=== PATIENT | male | born 1960 | race Caucasian/White ===

== ENCOUNTER 2024-06-17 12:22 | Inpatient (IN) | payer OTHER, MEDICARE ==
[~2024-06-17] VITALS: Ht 182.9 cm; Wt 109.1 kg
[2024-06-17 13:24] LABS: BASOPHILS % (AUTO) 0.2 % (0-1); EOSINOPHILS % (AUTO) 0.1 % (0-6); HEMATOCRIT 44.5 % (42.0-52.0); HEMOGLOBIN 15.4 g/dl (14.0-17.9); LYMPHOCYTES # (AUTO) 1.3 X10'3 (1.1-4.8); LYMPHOCYTES % (AUTO) 18.6 % (21-51); MEAN CORPUSCULAR HEMOGLOBIN 28.4 PG (27.0-31.0); MEAN CORPUSCULAR HGB CONC 34.6 g/dL (33.0-36.5); MEAN CORPUSCULAR VOLUME 82.1 FL (78-98); MEAN PLATELET VOLUME 10.2 FL (7.4-10.4); MONOCYTES # (AUTO) 0.6 X10'3 (0-0.9); NEUTROPHILS # (AUTO) 5.1 X10'3 (1.8-7.7); NEUTROPHILS % (AUTO) 73.1 % (42-75); PLATELET COUNT 166 X10'3 (140-440); RED BLOOD COUNT 5.42 X10'6 (4.70-6.10); RED CELL DISTRIBUTION WIDTH 13.2 % (11.5-14.5)
[2024-06-17 13:40] LABS: ALANINE AMINOTRANSFERASE 17 U/L (12-78); ALBUMIN 4.3 G/DL (3.4-5.0); ALBUMIN/GLOBULIN RATIO 1.3 (1.1-1.5); ALKALINE PHOSPHATASE 47 IU/L (46-116); AMYLASE 24 U/L (25-115); ANION GAP 11 (8-16); ASPARTATE AMINO TRANSFERASE 13 U/L (10-37); BILIRUBIN,TOTAL 1.5 MG/DL (0.1-1.0); BLOOD UREA NITROGEN 34 MG/DL (7-18); BUN/CREATININE RATIO 25.4 (10.0-20.0); CALCIUM 9.8 MG/DL (8.5-10.1); CHLORIDE 94 MMOL/L (99-107); CREATININE 1.34 MG/DL (0.60-1.10); LIPASE 14 U/L (16-77); POTASSIUM 4.7 MMOL/L (3.5-5.1); SODIUM 134 MMOL/L (135-145); TOTAL CARBON DIOXIDE 28.7 MMOL/L (24-32); TOTAL PROTEIN 7.7 G/DL (6.4-8.2); eCRCL 57 ML/MIN; eGFR 53 ML/MIN
[2024-06-17 13:50] LABS: GLUCOSE 408 MG/DL (70-104)
[2024-06-17] MEDS ORDERED: iohexol 300mg/ml 100ml inj. ONE (13:54)
[2024-06-17 14:38] LABS: BILIRUBIN,URINE SMALL (Neg); CLARITY,URINE CLEAR (Clear); COLOR,URINE YELLOW (Yellow); GLUCOSE, URINE >=1000 mg/dl (Neg); KETONES,URINE 40 mg/dl (Neg); LEUKOCYTE ESTERASE ,URINE NEGATIVE (Neg); NITRITES, URINE NEGATIVE (Neg); OCCULT BLOOD,URINE NEGATIVE (Neg); PROTEIN,URINE 30 mg/dl (Neg); UROBILINOGEN,URINE 0.2 E.U/dL (0.2-1.0)
[2024-06-17 14:41] LABS: UA COLLECTION TYPE URINAL
[2024-06-17 14:45] LABS: FINE GRANULAR CAST 0-3 /LPF (NEGATIVE); HYALINE CASTS 0-3 /LPF (NEGATIVE)
[2024-06-17 14:46] LABS: BACTERIA,URINE FEW /HPF (Neg); MUCUS STRANDS FEW /LPF (Neg); RBC,URINE 0-2 /HPF (0-2); SQUAMOUS EPITHELIAL CELL,UR FEW /LPF (FEW); WBC,URINE 0-4 /HPF (0-4)
[2024-06-17] MEDS: normal saline 1000ML IV soln IVB ONE (15:10)
[2024-06-17] MEDS: proCHLORperazine 10 MG/2 ml inj IV ONE (15:11)
[2024-06-17] MEDS: pantoprazole 40 MG vial IV ONE (15:11)
[2024-06-17 15:22] LABS: ACETONE SMALL (NEGATIVE)
[2024-06-17] MEDS: insulin regular, human 10 units/0.1 ml syringe SQ ONE (16:10)
[2024-06-17] MEDS ORDERED: magnesium hydroxide 30ml (MOM) UD suspension PO PRN (17:05)
[2024-06-17] MEDS ORDERED: acetaminophen 325mg tablet PO PRN (17:05)
[2024-06-17] MEDS ORDERED: potassium Cl 20 mEq SR tablet PO PRN ×2 (17:05)
[2024-06-17] MEDS ORDERED: magnesium Cl slow-release 64mg tablet PO PRN (17:05)
[2024-06-17] MEDS ORDERED: mag hydrox/Alum hydrox/simeth 30ml oral suspension PO PRN (17:05)
[2024-06-17] MEDS ORDERED: morphine 2 MG/ML inj. syringe IV PRN (17:05)
[2024-06-17] MEDS ORDERED: magnesium sulf-water 4G/100mL 100 ML IV PRN (17:05)
[2024-06-17] MEDS ORDERED: HYDROmorphone inj. 0.5 MG/0.5 ML DISP.SYRIN IV PRN (17:05)
[2024-06-17] MEDS ORDERED: ondansetron/PF 4mg/2ml inj IV PRN (17:05)
[2024-06-17] MEDS ORDERED: potassium Cl 40MEQ/1/2NS 520ml 520 ML IV PRN (17:05)
[2024-06-17] MEDS ORDERED: magnesium sulf-water 2g/50mL 50 ML IV PRN (17:05)
[2024-06-17] MEDS ORDERED: dextrose 50%-water 50ml dispensing syringe IV PRN ×2 (17:10)
[2024-06-17] MEDS ORDERED: glucagon, human recombinant 1mg kit SUBCUT PRN (17:10)
[2024-06-17] MEDS ORDERED: DEXTROSE 15 GM of carb/4 tabs (each vial/BOTTLE has 4 tablets) PO PRN ×2 (17:10)
[2024-06-17 17:47] LABS: OSMOLALITY UA 1022 MOSM/K (50-1400)
[2024-06-17 17:48] LABS: HEMOGLOBIN A1C 7.9 % (4.5-6.2)
[2024-06-17 17:59] LABS: OSMOLALITY 307 MOSM/K (280-300)
[2024-06-17 18:00] LABS: CREATININE 1.16 MG/DL (0.60-1.10); SODIUM 132 MMOL/L (135-145); eCRCL 66 ML/MIN; eGFR 63 ML/MIN
[2024-06-17 18:02] LABS: CREATININE,URINE RANDOM 136.1 MG/DL; SODIUM,URINE RANDOM 30 MEQ/L; URINE AMPHETAMINE SCREEN NEGATIVE (Neg); URINE BARBITUATE SCREEN NEGATIVE (Neg); URINE BENZODIAZEPINES SCREEN NEGATIVE (Neg); URINE COCAINE SCREEN NEGATIVE (Neg); URINE METHADONE SCREEN NEGATIVE (Neg); URINE OPIATE SCREEN NEGATIVE (Neg); URINE PHENCYCLIDINE SCREEN NEGATIVE (Neg)
[2024-06-17 18:03] LABS: URINE CANNABINOID SCREEN NEGATIVE (Neg)
[2024-06-17] MEDS: normal saline 1000ml 1,000 ML IV SCH (19:00)
[2024-06-17] MEDS: INSULIN LISPRO 100 UNIT/ML INSULN.PEN MULTI-DOSE SQ SCH ×2 (19:48→21:12)
[2024-06-17] MEDS: hydrALAZINE 20mg/ml inj. IV SCH (19:51)
[2024-06-17] MEDS: docusate sod 100mg capsule PO SCH (19:51)
[2024-06-17] MEDS: K and/or MAG REPLACEMENT MC SCH (19:52)
[2024-06-17] MEDS: insulin glargine (Lantus) pen - multi-dose SQ SCH (21:13)
[2024-06-17] MEDS ORDERED: GABA-1405 PO (21:32)
[2024-06-17] MEDS ORDERED: ROSU40TA89 PO (21:32)
[2024-06-17] MEDS ORDERED: LISI10TA27 PO (21:32)
[2024-06-17] MEDS ORDERED: INSU200I8 (21:32)
[2024-06-17] MEDS ORDERED: BUPR8TAB4 SL (21:32)
[2024-06-17] MEDS ORDERED: LACT10PA5 PO (21:32)
[2024-06-18] VITALS (8 sets, daily range): BP systolic 131–172; BP diastolic 61–85; PULSE 81–94; RESP 14–18; TEMP 97.9–98.8; O2SAT 97–99
[2024-06-18] MEDS ORDERED: HYDROmorphone 1 mg/ml syringe IV PRN (00:50)
[2024-06-18 05:57] LABS: BASOPHILS # (AUTO) 0.1 X10'3 (0-0.2); BASOPHILS % (AUTO) 1.2 % (0-1); EOSINOPHILS # (AUTO) 0.1 X10'3 (0-0.9); EOSINOPHILS % (AUTO) 1.1 % (0-6); HEMATOCRIT 38.9 % (42.0-52.0); HEMOGLOBIN 13.6 g/dl (14.0-17.9); LYMPHOCYTES # (AUTO) 2.2 X10'3 (1.1-4.8); LYMPHOCYTES % (AUTO) 31.6 % (21-51); MEAN CORPUSCULAR HEMOGLOBIN 28.8 PG (27.0-31.0); MEAN CORPUSCULAR VOLUME 82.1 FL (78-98); MEAN PLATELET VOLUME 10.5 FL (7.4-10.4); MONOCYTES # (AUTO) 0.8 X10'3 (0-0.9); MONOCYTES % (AUTO) 11.4 % (2-12); NEUTROPHILS # (AUTO) 3.8 X10'3 (1.8-7.7); NEUTROPHILS % (AUTO) 54.7 % (42-75); PLATELET COUNT 135 X10'3 (140-440); RED BLOOD COUNT 4.74 X10'6 (4.70-6.10); RED CELL DISTRIBUTION WIDTH 12.8 % (11.5-14.5); WHITE BLOOD COUNT 6.9 X10'3 (4.5-11.0)
[2024-06-18 06:10] LABS: ALANINE AMINOTRANSFERASE 11 U/L (12-78); ALKALINE PHOSPHATASE 36 IU/L (46-116); ANION GAP 7 (8-16); ASPARTATE AMINO TRANSFERASE 13 U/L (10-37); BILIRUBIN,TOTAL 0.9 MG/DL (0.1-1.0); BLOOD UREA NITROGEN 25 MG/DL (7-18); BUN/CREATININE RATIO 27.5 (10.0-20.0); CALCIUM 8.3 MG/DL (8.5-10.1); CHLORIDE 105 MMOL/L (99-107); CREATININE 0.91 MG/DL (0.60-1.10); GLUCOSE 195 MG/DL (70-104); MAGNESIUM 2.3 MG/DL (1.5-2.4); SODIUM 138 MMOL/L (135-145); TOTAL CARBON DIOXIDE 26.5 MMOL/L (24-32); TOTAL PROTEIN 5.9 G/DL (6.4-8.2); eCRCL 89 ML/MIN; eGFR 84 ML/MIN
[2024-06-18 06:11] LABS: POTASSIUM 3.5 MMOL/L (3.5-5.1)
[2024-06-18] MEDS: lisinopril 20mg tablet PO SCH (08:10)
[2024-06-18] MEDS: pantoprazole 40mg Tablet.DR PO SCH (08:10)
[2024-06-18] MEDS: atorvastatin 20mg tablet PO SCH (08:10)
[2024-06-18] MEDS: amLODIPine 5mg tablet PO SCH (12:45)
[2024-06-18] MEDS ORDERED: lisinopril 20mg tablet PO ONE (16:40)
[2024-06-18] MEDS: amLODIPine 5mg tablet PO ONE (18:01)
[2024-06-19] MEDS ORDERED: metoclopramide 10mg tablet PO PRN (05:45)
[2024-06-19 06:00] VITALS: BP 162/60; PULSE 90; RESP 18; TEMP 99.8; O2SAT 99
[2024-06-19 06:59] LABS: ALANINE AMINOTRANSFERASE 12 U/L (12-78); ALBUMIN 3.3 G/DL (3.4-5.0); ALBUMIN/GLOBULIN RATIO 1.2 (1.1-1.5); ALKALINE PHOSPHATASE 35 IU/L (46-116); ANION GAP 7 (8-16); ASPARTATE AMINO TRANSFERASE 15 U/L (10-37); BILIRUBIN,TOTAL 1.1 MG/DL (0.1-1.0); BLOOD UREA NITROGEN 17 MG/DL (7-18); BUN/CREATININE RATIO 19.3 (10.0-20.0); CALCIUM 8.8 MG/DL (8.5-10.1); CHLORIDE 105 MMOL/L (99-107); CREATININE 0.88 MG/DL (0.60-1.10); GLUCOSE 99 MG/DL (70-104); POTASSIUM 3.2 MMOL/L (3.5-5.1); SODIUM 141 MMOL/L (135-145); TOTAL CARBON DIOXIDE 28.8 MMOL/L (24-32); eCRCL 92 ML/MIN; eGFR 87 ML/MIN
[2024-06-19 07:08] LABS: BASOPHILS % (AUTO) 0.4 % (0-1); EOSINOPHILS % (AUTO) 0.7 % (0-6); HEMATOCRIT 37.3 % (42.0-52.0); HEMOGLOBIN 12.8 g/dl (14.0-17.9); LYMPHOCYTES # (AUTO) 1.4 X10'3 (1.1-4.8); LYMPHOCYTES % (AUTO) 21.3 % (21-51); MEAN CORPUSCULAR HEMOGLOBIN 28.2 PG (27.0-31.0); MEAN CORPUSCULAR HGB CONC 34.4 g/dL (33.0-36.5); MEAN CORPUSCULAR VOLUME 82.1 FL (78-98); MEAN PLATELET VOLUME 10.6 FL (7.4-10.4); MONOCYTES # (AUTO) 0.7 X10'3 (0-0.9); NEUTROPHILS # (AUTO) 4.4 X10'3 (1.8-7.7); NEUTROPHILS % (AUTO) 66.6 % (42-75); PLATELET COUNT 151 X10'3 (140-440); RED BLOOD COUNT 4.55 X10'6 (4.70-6.10); RED CELL DISTRIBUTION WIDTH 12.8 % (11.5-14.5); WHITE BLOOD COUNT 6.6 X10'3 (4.5-11.0)
[2024-06-19] MEDS ORDERED: lisinopril 20mg tablet PO SCH (08:00)
[2024-06-19] MEDS: hyDRALAzine 10mg tablet PO SCH (08:18)
[2024-06-19 08:30] VITALS: RESP 16
[2024-06-19] MEDS: lisinopril 20mg tablet PO SCH (08:30)
[2024-06-19] MEDS ORDERED: proCHLORperazine 10 MG/2 ml inj IV PRN (08:40)
[2024-06-19] MEDS: potassium Cl 20 mEq SR tablet PO STA (09:16)
[2024-06-19 09:31] LABS: LARGE PLATELETS FEW; PLATELET ESTIMATE NORMAL
[2024-06-19] MEDS: proCHLORperazine 10mg tablet PO ONE (09:49)
[2024-06-19 10:00] VITALS: BP 139/68; PULSE 86; RESP 16; TEMP 98.1; O2SAT 97
[2024-06-19] MEDS ORDERED: AMLO5TAB16 PO (13:19)
[2024-06-19] MEDS ORDERED: MAGN64TA10 PO (13:19)
[2024-06-19] MEDS ORDERED: PROC-8 PO (13:19)
[2024-06-19] MEDS ORDERED: POTA-207 PO (13:19)
[2024-06-19] MEDS ORDERED: PANT40TA54 PO (13:19)
== END 2024-06-19 14:30 | disposition home or self-care (01) | DRG 637 ==
LOC: ER 12:22 → UNDOADMIN 16:20 → ED HOLD 16:20 → ORTHO 4S 06-18 00:44 → UNDODISIN 06-19 14:30
PROVIDERS: ADMIT Family Medicine; ATTEND Family Medicine
PROC: BW211ZZ Computerized Tomography (CT Scan) of Abdomen and Pelvis using Low Osmolar Contrast (ICD-10-PCS; principal; 2024-06-17)
DX: E11.65 Type 2 diabetes mellitus with hyperglycemia (principal); G93.41 Metabolic encephalopathy; N17.0 Acute kidney failure with tubular necrosis; E87.1 Hypo-osmolality and hyponatremia; Z20.822 Contact with and (suspected) exposure to COVID-19; E86.0 Dehydration; E78.00 Pure hypercholesterolemia, unspecified; I10 Essential (primary) hypertension; E80.6 Other disorders of bilirubin metabolism; I95.9 Hypotension, unspecified; Z66 Do not resuscitate
CPT/HCPCS: 36415; 70450; 71045; 74177; 80053; 80305; 81001; 82009; 82150; 82565; 82570; 82948; 83036; 83690; 83735; 83930; 83935; 84132; 84295; 84300; 85008; 85025; 87081; 87207; 87502; 87503; 87811; 92508; 92616; 97161; 97530; 99285; G0378; J0360; J0780; J1815; J2470; J7030; Q0164; Q9967